=== PATIENT | male | born 1980 | race Caucasian/White ===

== ENCOUNTER 2017-04-26 01:15 | Observation (INO) | payer SELFPAY ==
[2017-04-26] VITALS (11 sets, daily range): BP systolic 95–126; BP diastolic 56–81; PULSE 65–115; RESP 14–20; TEMP 97.3–99.8; O2SAT 96–100
[~2017-04-26] VITALS: Ht 167.6 cm; Wt 69.1 kg
[~2017-04-26 01:15] MED LIST: BACL10TA PO; CYCL-36 PO; GABA100C4 PO; NAPR250T57 PO; TRAM100T19 PO
[2017-04-26] MEDS ORDERED: HYDR-3583 PO (01:28)
[2017-04-26] MEDS ORDERED: VARE.5 PO (01:28)
[2017-04-26] MEDS ORDERED: TRAM50TA PO (01:28)
[2017-04-26] MEDS ORDERED: SODIUM CHLOR 0.9% 1000 ML INJ 1,000 ML IV SCH ×2 (01:41→08:00)
[2017-04-26] MEDS ORDERED: ONDANSETRON HCL 4 MG/2 ML VIAL IVP ONE (01:45)
[2017-04-26] MEDS ORDERED: SODIUM CHLORIDE 0.9% FLUSH 10 ML FLUSH IV FLUSH PRN ×2 (01:45→07:30)
[2017-04-26] MEDS ORDERED: MORPHINE SULFATE 8 MG/ML INJ IV PUSH ONE ×2 (01:45→07:00)
[2017-04-26] MEDS ORDERED: IOHEXOL 350 MG/ML 10 ML VIAL (for RAD DIAG) IVCONTRAST ONE (02:01)
[2017-04-26 02:11] LABS: BASOPHIL % 0.2 % (0.0-2.0); EOSINOPHIL # 0.2 TH/MM3 (0-0.4); EOSINOPHIL % 1.7 % (0.0-4.0); HEMATOCRIT 41.4 % (39.0-51.0); HEMOGLOBIN 13.9 GM/DL (13.0-17.0); LYMPH % 27.1 % (9.0-44.0); MEAN CELL VOLUME 88.2 FL (80.0-100.0); MEAN CORPUSCULAR HEMOGLOBIN 29.5 PG (27.0-34.0); MEAN CORPUSCULAR HGB CONC 33.5 % (32.0-36.0); MEAN PLATELET VOLUME 7.7 FL (7.0-11.0); MONO % 7.9 % (0.0-8.0); MONOCYTE # 0.9 TH/MM3 (0-0.9); NEUT % 63.1 % (16.0-70.0); PLATELET COUNT 316 TH/MM3 (150-450); RED CELL DISTRIBUTION WIDTH 12.8 % (11.6-17.2); WHITE BLOOD COUNT 11.1 TH/MM3 (4.0-11.0)
[2017-04-26 02:12] LABS: BILIRUBIN, URINE NEG (NEG); BLOOD, URINE NEG (NEG); GLUCOSE,URINE NEG (NEG); KETONE, URINE NEG (NEG); MUCUS URINE FEW /lpf (OCC); NITRITE,URINE NEG (NEG); PH, URINE 5.5 (5.0-8.5); SQUAMOUS EPITHELIAL CELL URINE <1 /hpf (0-5); URINE COLOR YELLOW (YELLW/STRAW); URINE LEUKOCYTE ESTERASE NEG (NEG)
[2017-04-26 02:30] LABS: ALBUMIN 3.9 GM/DL (3.4-5.0); ALT (GPT) 52 U/L (12-78); AST (GOT) 25 U/L (15-37); BICARBONATE 28.1 MEQ/L (21.0-32.0); BLOOD UREA NITROGEN 16 MG/DL (7-18); CALCIUM 8.8 MG/DL (8.5-10.1); CHLORIDE 108 MEQ/L (98-107); CREATININE 0.95 MG/DL (0.60-1.30); GLOMERULAR FILTRATION RATE 89 ML/MIN (>89); GLUCOSE,RANDOM 113 MG/DL (74-106); LIPASE 259 U/L (73-393); SODIUM (NA) 143 MEQ/L (136-145)
--- NOTE | 2017-04-26 02:30 | RADRPT ---
EXAM DATE/TIME: 04/26/2017 02:01 [place] COMPARISON: No previous studies available for comparison. INDICATIONS : Abdominal pain with vomiting; rule out appendicitis. IV CONTRAST: 96 cc Omnipaque 350 (iohexol) IV ORAL CONTRAST: No oral contrast ingested. RADIATION DOSE: 6.78 CTDIvol (mGy) MEDICAL HISTORY : None SURGICAL HISTORY : None. ENCOUNTER: Initial ACUITY: 1 day PAIN SCALE: 10/10 LOCATION: abdomen TECHNIQUE: Volumetric scanning of the abdomen and pelvis was performed. Using automated exposure control and ad justment of the mA and/or kV according to patient size, radiation dose was kept as low as reasonably achievable to obtain optimal diagnostic quality images. DICOM format image data is available electro nically for review and comparison. FINDINGS: LOWER LUNGS: The visualized lower lungs are clear. LIVER: Homogeneous density without lesion. There is no dilation of the biliary tree. No calcified gallston es. SPLEEN: Normal size without lesion. PANCREAS: Within normal limits. KIDNEYS: Normal in size and shape. There is no mass, stone or hydronephrosis. ADRENAL GLANDS: Within normal limits. VASCULAR: There is no aortic aneurysm. BOWEL/MESENTERY: Distended appendix at approximate 13 mm. There is mild wall thickening and mild periappendiceal fat s tranding. No abscess, perforation or obstruction. CT appearance of the rest of the gastrointestinal t ract within normal limits. No free fluid. ABDOMINAL WALL: Within normal limits. RETROPERITONEUM: There is no lymphadenopathy. BLADDER: No wall thickening or mass. REPRODUCTIVE: Within normal limits. INGUINAL: There is no lymphadenopathy or hernia. MUSCULOSKELETAL: Within normal limits for patient age. CONCLUSION: CT findings of early/mild uncomplicated appendicitis in the proper clinical setting. The rest of the CT is normal. Juan Barker MD on April 26, 2017 at 2:27 Board Certified Radiologist. This report was verified electronically.
[2017-04-26 02:32] LABS: ALKALINE PHOSPHATASE 61 U/L (45-117); TOTAL BILIRUBIN ADULT 0.4 MG/DL (0.2-1.0); TOTAL PROTEIN 7.2 GM/DL (6.4-8.2)
[2017-04-26] MEDS ORDERED: PIPERACIL-TAZO 4.5 GM PREMIX 100 ML IV ONE (02:45)
--- NOTE | 2017-04-26 03:14 | PD ---
HPI Chief Complaint: Abdominal Pain Time Seen by Provider: 01:41 Travel History International Travel<30 days: No Contact w/Intl Traveler<30days: No Traveled to known affect area: No History of Present Illness HPI 37-year-old male who was abdominal pain on the right side. Onset gradual. Appetite decreased throughout the last 24 hours. The patient has nausea. He denies diarrhea. Pain is not constant. He denies fever. Pain is worse with palpation. PFSH Past Medical History Medical other: Yes (CHRONIC LOWER BACK PAIN ) Tetanus Vaccination: > 5 Years Influenza Vaccination: No Social History Alcohol Use: Yes (1-2 DRINKS PER WEEK) Tobacco Use: Yes (<1 PPD) Substance Use: No Allergies-Medications (Allergen,Severity, Reaction): Coded Allergies: No Known Allergies (Verified Allergy, Unknown, 04/26/17) Reported Meds & Prescriptions Reported Meds & Active Scripts Active Hydrocodone-Acetamin 5-325 mg (Hydrocodone/Acetaminophen) 5 Mg-325 Mg Tablet 1- 2 Tab PO Q4H PRN Reported Chantix (Varenicline) 0.5 Mg Tab 0.5 Mg PO DAILY Days 1-3 Tramadol (Tramadol HCl) 50 Mg Tab 50 Mg PO Q4H PRN Lioresal (Baclofen) 10 Mg Tab Unknown Dose PO TID Review of Systems Except as stated in HPI: all other systems reviewed are Neg General / Constitutional: No: Fever Gastrointestinal: Positive: Abdominal Pain Physical Exam Narrative GENERAL: 37-year-old male well-nourished well-developed mild to moderate distress secondary to pain SKIN: Focused skin assessment warm/dry. HEAD: Atraumatic. Normocephalic. EYES: Pupils equal and round. No scleral icterus. No injection or drainage. ENT: No nasal bleeding or discharge. Mucous membranes pink and moist. NECK: Trachea midline. No JVD. CARDIOVASCULAR: Regular rate and rhythm. No murmur appreciated. RESPIRATORY: No accessory muscle use. Clear to auscultation. Breath sounds equal bilaterally. GASTROINTESTINAL: There is tenderness at McBurney's point. The abdomen is soft. There is no peritonitis. MUSCULOSKELETAL: No obvious deformities. No clubbing. No cyanosis. No edema. NEUROLOGICAL: Awake and alert. No obvious cranial nerve deficits. Motor grossly within normal limits. Normal speech. PSYCHIATRIC: Appropriate mood and affect; insight and judgment normal. Data Data Last Documented VS Vital Signs Date Time Temp Pulse Resp B/P (MAP) Pulse Ox O2 Delivery O2 Flow Rate FiO2 04/26/17 07:05 93 18 113/75 (88) 99 Room Air 04/26/17 06:00 2.00 04/26/17 01:19 98.6 Vital signs reviewed Orders Orders Complete Blood Count With Diff (04/26/17 01:41) Comprehensive Metabolic Panel (04/26/17 01:41) Lipase (04/26/17 01:41) Lactic Acid (04/26/17 01:41) Urinalysis - C+S If Indicated (04/26/17 01:41) Ct Abd/Pel W Iv Contrast(Rout) (04/26/17 01:41) Iv Access Insert/Monitor (04/26/17 01:41) Ecg Monitoring (04/26/17 01:41) Oximetry (04/26/17 01:41) Ondansetron Inj (Zofran Inj) (04/26/17 01:45) Sodium Chlor 0.9% 1000 Ml Inj (Ns 1000 M (04/26/17 01:41) Sodium Chloride 0.9% Flush (Ns Flush) (04/26/17 01:45) Morphine Inj (Morphine Inj) (04/26/17 01:45) Piperacil-Tazo 4.5 Gm Premix (Zosyn 4.5 (04/26/17 02:45) Ketamine Inj (Ketalar Inj) (04/26/17 03:15) Sodium Chlor 0.9% 1000 Ml Inj (Ns 1000 M (04/26/17 03:15) Midazolam Inj (Versed Inj) (04/26/17 03:45) Ondansetron Inj (Zofran Inj) (04/26/17 06:45) Morphine Inj (Morphine Inj) (04/26/17 07:00) Promethazine Inj (Phenergan Inj) (04/26/17 07:00) Admit Order (Ed Use Only) (04/26/17 ) Labs Laboratory Tests Test 04/26/17 01:50 04/26/17 01:56 White Blood Count 11.1 TH/MM3 Red Blood Count 4.70 MIL/MM3 Hemoglobin 13.9 GM/DL Hematocrit 41.4 % Mean Corpuscular Volume 88.2 FL Mean Corpuscular Hemoglobin 29.5 PG Mean Corpuscular Hemoglobin Concent 33.5 % Red Cell Distribution Width 12.8 % Platelet Count 316 TH/MM3 Mean Platelet Volume 7.7 FL Neutrophils (%) (Auto) 63.1 % Lymphocytes (%) (Auto) 27.1 % Monocytes (%) (Auto) 7.9 % Eosinophils (%) (Auto) 1.7 % Basophils (%) (Auto) 0.2 % Neutrophils # (Auto) 7.0 TH/MM3 Lymphocytes # (Auto) 3.0 TH/MM3 Monocytes # (Auto) 0.9 TH/MM3 Eosinophils # (Auto) 0.2 TH/MM3 Basophils # (Auto) 0.0 TH/MM3 CBC Comment DIFF FINAL Differential Comment Urine Color YELLOW Urine Turbidity CLEAR Urine pH 5.5 Urine Specific [place] 1.025 Urine Protein NEG mg/dL Urine Glucose (UA) NEG mg/dL Urine Ketones NEG mg/dL Urine Occult Blood NEG Urine Nitrite NEG Urine Bilirubin NEG Urine Urobilinogen LESS THAN 2.0 MG/DL Urine Leukocyte Esterase NEG Urine RBC LESS THAN 1 /hpf Urine WBC LESS THAN 1 /hpf Urine Squamous Epithelial Cells <1 /hpf Urine Mucus FEW /lpf Microscopic Urinalysis Comment CULT NOT INDICATED Blood Urea Nitrogen 16 MG/DL Creatinine 0.95 MG/DL Random Glucose 113 MG/DL Total Protein 7.2 GM/DL Albumin 3.9 GM/DL Calcium Level 8.8 MG/DL Alkaline Phosphatase 61 U/L Aspartate Amino Transf (AST/SGOT) 25 U/L Alanine Aminotransferase (ALT/SGPT) 52 U/L Total Bilirubin 0.4 MG/DL Sodium Level 143 MEQ/L Potassium Level 3.8 MEQ/L Chloride Level 108 MEQ/L Carbon Dioxide Level 28.1 MEQ/L Anion Gap 7 MEQ/L Estimat Glomerular Filtration Rate 89 ML/MIN Lipase 259 U/L Lactic Acid Level 2.0 mmol/L MDM Medical Decision Making Medical Screen Exam Complete: Yes Emergency Medical Condition: Yes Medical Record Reviewed: Yes Differential Diagnosis Constipation, Gastritis, Acute Cholecystitis, Biliary Colic, Pancreatitis, JUSTICE , Hepatitis, Bowel Obstruction, Cystitis, Mesenteric Ischemia, AAA, Appendicitis , Renal Stone/Hydronephrosis, GERD, perforated viscous Narrative Course CBC & BMP Diagram 04/26/17 01:50 Total Protein 7.2, Albumin 3.9, Calcium Level 8.8, Alkaline Phosphatase 61, Aspartate Amino Transf (AST/SGOT) 25, Alanine Aminotransferase (ALT/SGPT) 52, Total Bilirubin 0.4 The lactic acid is normal. Urinalysis shows no UTI CT of the abdomen and pelvis reveals early uncomplicated appendicitis Patient is abdomen is soft. Zosyn started. Maintenance fluids started. Patient reports persistent pain at time of reassessment, 3:05 AM, and 10 mg of IV ketamine ordered as the patient takes opioids and a regular basis and I doubt additional morphine will help. There is no sign of perforated abscess and with a soft belly the patient is not peritoneal. Dr Ponce called at 3:03AM w second call placed at 6:00AM. Dr Ponce called at 6:20AM and 6:45AM. Pain controlled by IV ketamine from approx 4:00AM to 6:30AM. Mild TTP at 6:50AM with complaints of nausea and increasing pain. Zofran and Morphine ordered. Diagnosis Primary Impression: Appendicitis Qualified Codes: K35.80 - Unspecified acute appendicitis Admitting Information Admitting Physician Requests: Observation Scripts Hydrocodone/Acetaminophen (Hydrocodone-Acetamin 5-325 mg) 5 Mg-325 Mg Tablet 1-2 TAB PO Q4H Y for PAIN, #20 TAB Prov: Napoleon Hadley MD 04/26/17 Titus Bee MD Apr 26, 2017 03:14
[2017-04-26] MEDS ORDERED: SODIUM CHLOR 0.9% 1000 ML INJ 1,000 ML IV ONE (03:15)
[2017-04-26] MEDS ORDERED: KETAMINE HCL 500 MG/5 ML VIAL IV PUSH ONE (03:15)
[2017-04-26] MEDS ORDERED: MIDAZOLAM HCL 2 MG/2 ML VIAL IV PUSH ONE (03:45)
[2017-04-26] MEDS ORDERED: ONDANSETRON HCL 4 MG/2 ML VIAL IV PUSH ONE (06:45)
[2017-04-26] MEDS ORDERED: PROMETHAZINE INJ 25 MG/ML VIAL IM ONE (07:00)
[2017-04-26] MEDS ORDERED: ONDANSETRON HCL 4 MG/2 ML VIAL IV PUSH PRN (07:30)
[2017-04-26] MEDS ORDERED: NICOTINE 7 MG/24 HR PATCH T-DERMAL ONE (07:30)
[2017-04-26] MEDS ORDERED: MORPHINE SULFATE 2 MG/ML INJ IV PUSH PRN (07:45)
[2017-04-26] MEDS ORDERED: SODIUM CHLORIDE 0.9% FLUSH 10 ML FLUSH IV FLUSH SCH (09:00)
[2017-04-26] MEDS ORDERED: PIPERACIL-TAZO 3.375 GM PREMIX 50 ML IV SCH (09:00)
[2017-04-26] MEDS ORDERED: REMOVE OLD PATCH T-DERMAL SCH (09:15)
[2017-04-26] MEDS ORDERED: NICOTINE 7 MG/24 HR PATCH T-DERMAL SCH (09:15)
--- NOTE | 2017-04-26 09:17 | HHI.HP ---
HPI Service General Surgery Primary Care Physician Juan Phillips, DO Admission Diagnosis acute appendicitis Chief Complaint: Abdominal pain History of Present Illness The patient is a 37 yo M who developed acute onset of periumbilical abdominal pain at 930pm last night which worsened and a few hrs later he presented to the ED. He has had nausea and multiple episodes of emesis. He is noted to have a WBC of 11,[address] a/p concerning for appendicitis. Review of Systems Constitutional: DENIES: Fever, Chills Eyes: DENIES: Eye inflammation, Eye pain Cardiovascular: DENIES: Chest pain, Palpitations Gastrointestinal: COMPLAINS OF: Abdominal pain, Nausea, Vomiting Musculoskeletal: COMPLAINS OF: Back pain Integumentary: DENIES: Pruritus, Rash Neurologic: DENIES: Seizures, Speech Problems Past Family Social History Past Medical History Chronic back pain Past Surgical History Knee surgery Reported Medications Reported Meds & Active Scripts Active Reported Chantix (Varenicline) 0.5 Mg Tab 0.5 Mg PO DAILY Days 1-3 Tramadol (Tramadol HCl) 50 Mg Tab 50 Mg PO Q4H PRN Hydrocodone-Acetaminophen 10-325 mg Tab 1 Tab PO Q4H PRN Lioresal (Baclofen) 10 Mg Tab Unknown Dose PO TID Allergies: Coded Allergies: No Known Allergies (Verified Allergy, Unknown, 04/26/17) Active Ordered Medications Current Medications Medications (Trade) Dose Ordered Sig/Mandy Route Start Time Stop Time Status Last Admin Sodium Chloride 1,000 ml @ 125 mls/hr Q8H IV 04/26/17 08:00 04/26/17 08:24 (NS Flush) 2 ml UNSCH PRN IV FLUSH 04/26/17 07:30 (NS Flush) 2 ml BID IV FLUSH 04/26/17 09:00 Piperacillin Sod/ Tazobactam Sod 50 ml @ 100 mls/hr Q6H IV 04/26/17 09:00 (Morphine Inj) 4 mg Q2H PRN IV PUSH 04/26/17 07:45 (Zofran Inj) 4 mg Q6H PRN IV PUSH 04/26/17 07:30 Family History Noncontributory Social History On chantix attempting to quit smoking but still smokes cigarettes. Occ ETOH use. Physical Exam Vital Signs Vital Signs Date Time Temp Pulse Resp B/P (MAP) Pulse Ox O2 Delivery O2 Flow Rate FiO2 04/26/17 09:06 04/26/17 07:05 93 18 113/75 (88) 99 Room Air 04/26/17 06:00 65 16 122/77 (92) 100 Nasal Cannula 2.00 04/26/17 05:00 65 16 120/75 (90) 100 Nasal Cannula 2.00 04/26/17 04:01 88 14 126/77 (93) 100 Nasal Cannula 2.00 04/26/17 03:31 115 16 126/76 (93) 100 Nasal Cannula 2.00 04/26/17 03:00 100 16 107/65 (79) 100 Room Air 04/26/17 01:19 98.6 69 20 111/81 (91) 100 Room Air Physical Exam GENERAL: Awake and alert. No acute distress. Cooperative. HEAD: Normocephalic. Atraumatic. EYES: Pupils equal round and reactive to light bilaterally. No scleral icterus. ENT: Moist oral mucosa. NECK: Trachea midline. CHEST: Lungs clear to auscultation bilaterally with no wheezing or rhonchi. No respiratory distress. CARDIOVASCULAR: Regular rate and rhythm. ABDOMEN: MIld LLQ ttp. Severe ttp and + rebound in RLQ. EXTREMITIES: No cyanosis or edema. SKIN: Warm, dry, nonjaundiced. Laboratory Laboratory Tests Test 04/26/17 01:50 04/26/17 01:56 White Blood Count 11.1 Red Blood Count 4.70 Hemoglobin 13.9 Hematocrit 41.4 Mean Corpuscular Volume 88.2 Mean Corpuscular Hemoglobin 29.5 Mean Corpuscular Hemoglobin Concent 33.5 Red Cell Distribution Width 12.8 Platelet Count 316 Mean Platelet Volume 7.7 Neutrophils (%) (Auto) 63.1 Lymphocytes (%) (Auto) 27.1 Monocytes (%) (Auto) 7.9 Eosinophils (%) (Auto) 1.7 Basophils (%) (Auto) 0.2 Neutrophils # (Auto) 7.0 Lymphocytes # (Auto) 3.0 Monocytes # (Auto) 0.9 Eosinophils # (Auto) 0.2 Basophils # (Auto) 0.0 CBC Comment DIFF FINAL Differential Comment Urine Color YELLOW Urine Turbidity CLEAR Urine pH 5.5 Urine Specific [place] 1.025 Urine Protein NEG Urine Glucose (UA) NEG Urine Ketones NEG Urine Occult Blood NEG Urine Nitrite NEG Urine Bilirubin NEG Urine Urobilinogen LESS THAN 2.0 Urine Leukocyte Esterase NEG Urine RBC LESS THAN 1 Urine WBC LESS THAN 1 Urine Squamous Epithelial Cells <1 Urine Mucus FEW Microscopic Urinalysis Comment CULT NOT INDICATED Blood Urea Nitrogen 16 Creatinine 0.95 Random Glucose 113 Total Protein 7.2 Albumin 3.9 Calcium Level 8.8 Alkaline Phosphatase 61 Aspartate Amino Transf (AST/SGOT) 25 Alanine Aminotransferase (ALT/SGPT) 52 Total Bilirubin 0.4 Sodium Level 143 Potassium Level 3.8 Chloride Level 108 Carbon Dioxide Level 28.1 Anion Gap 7 Estimat Glomerular Filtration Rate 89 Lipase 259 Lactic Acid Level 2.0 Result Diagram: 04/26/1714904/26/17149 Imaging Last Impressions Abdomen/Pelvis CT 04/26/17 0141 Signed Impressions: Service Date/Time: Wednesday, April 26, 2017 02:01 - CONCLUSION: CT findings of early/mild uncomplicated appendicitis in the proper clinical setting. The rest of the CT is normal. Juan Barker MD Caprini VTE Risk Assessment Caprini VTE Risk Assessment: No/Low Risk (score <= 1) Caprini Risk Assessment Model Point Value = 1 Point Value = 2 Point Value = 3 Point Value = 5 Age 41-60 Minor surgery BMI > 25 kg/m2 Swollen legs Varicose veins or History of unexplained or recurrent spontaneous Oral contraceptives or hormone replacement Sepsis (< 1 month) Serious lung disease, including pneumonia (< 1 month) Abnormal pulmonary function Acute myocardial infarction Congestive heart failure (< 1 month) History of inflammatory bowel disease Medical patient at bed rest Age 61-74 Arthroscopic surgery Major open surgery (> 45 min) Laparoscopic surgery (> 45 min) Malignancy Confined to bed (> 72 hours) Immobilizing plaster cast Central venous access Age >= 75 History of VTE Family history of VTE Factor V Leiden Prothrombin [id number] Lupus anticoagulant Anticardiolipin antibodies Elevated serum homocysteine Heparin-induced thrombocytopenia Other congenital or acquired thrombophilia Stroke (< 1 month) Elective arthroplasty Hip, pelvis, or leg fracture Acute spinal cord injury (< 1 month) Prophylaxis Regimen Total Risk Factor Score Risk Level Prophylaxis Regimen 0-1 Low Early ambulation 2 Moderate Order ONE of the following: *Sequential Compression Device (SCD) *Heparin 5000 units SQ BID 3-4 Higher Order ONE of the following medications: *Heparin 5000 units SQ TID *Enoxaparin/Lovenox 40 mg SQ daily (WT < 150 kg, CrCl > 30 mL/min) *Enoxaparin/Lovenox 30 mg SQ daily (WT < 150 kg, CrCl > 10-29 mL/min) *Enoxaparin/Lovenox 30 mg SQ BID (WT < 150 kg, CrCl > 30 mL/min) AND/OR *Sequential Compression Device (SCD) 5 or more Highest Order ONE of the following medications: *Heparin 5000 units SQ TID (Preferred with Epidurals) *Enoxaparin/Lovenox 40 mg SQ daily (WT < 150 kg, CrCl > 30 mL/min) *Enoxaparin/Lovenox 30 mg SQ daily (WT < 150 kg, CrCl > 10-29 mL/min) *Enoxaparin/Lovenox 30 mg SQ BID (WT < 150 kg, CrCl > 30 mL/min) AND *Sequential Compression Device (SCD) Assessment and Plan Assessment and Plan 37-year-old male who has an evaluation consistent with acute appendicitis. I recommend to proceed with laparoscopic possible open appendectomy. I discussed the procedure including details and risks with the patient and his and he desires to proceed. We will give low-dose nicotine patch at his request. Continue IV antibiotics. Napoleon Hadley MD Apr 26, 2017 09:17
[2017-04-26] MEDS ORDERED: PROPOFOL 200 MG/20 ML AMP IV ONE (12:00)
[2017-04-26] MEDS ORDERED: LACTATED RINGER'S 1000 ML INJ 1,000 ML IV ONE (12:00)
[2017-04-26] MEDS ORDERED: ROCURONIUM INJ 50 MG/5 ML SYRINGE IV PUSH ONE (12:00)
[2017-04-26] MEDS ORDERED: GLYCOPYRROLATE 1 MG/5 ML SYRINGE IV PUSH ONE (12:00)
[2017-04-26] MEDS ORDERED: LIDOCAINE HCL 1% PF 5 ML SYRINGE OTHER ONE (12:00)
[2017-04-26] MEDS ORDERED: ONDANSETRON HCL 4 MG/2 ML VIAL IV ONE (12:00)
[2017-04-26] MEDS ORDERED: MIDAZOLAM HCL 2 MG/2 ML VIAL IV ONE (12:00)
[2017-04-26] MEDS ORDERED: SUCCINYLCHOLINE CHLORIDE 100 MG/5 ML SYRINGE IV PUSH ONE (12:00)
[2017-04-26] MEDS ORDERED: DEXAMETHASONE SOD PHOS 4 MG/ML VIAL IV ONE (12:00)
[2017-04-26] MEDS ORDERED: NEOSTIGMINE 5 MG/5 ML SYRINGE IV PUSH ONE (12:00)
[2017-04-26] MEDS ORDERED: ACETAMINOPHEN 1000 MG/100 ML 100 ML IV ONE (13:43)
[2017-04-26] MEDS ORDERED: BUPIVACAINE/EPINEPHRINE 0.25% PF 30 ML VIAL ONE (13:47)
[2017-04-26] MEDS ORDERED: POVIDONE IODINE 5% (ANTISEPSIS KIT) 4 APPLICATIONS EACH NARE PRN (14:00)
[2017-04-26] MEDS ORDERED: SODIUM CHLORID 0.9% 500 ML IV PRN (14:00)
[2017-04-26] MEDS ORDERED: METOPROLOL TARTRATE 25 MG TAB PO PRN (14:00)
[2017-04-26] MEDS ORDERED: LACTATED RINGER'S 1000 ML IV PRN (14:00)
[2017-04-26] MEDS ORDERED: CHLORHEXIDINE GLUCONATE 2 % 1 PACK (2 CLOTHS) TOPICAL PRN (14:00)
--- NOTE | 2017-04-26 15:21 | PD.OP ---
cc: Napoleon Hadley MD Operative Report Date of Surgery: Apr 26, 2017 Preoperative Diagnosis: (1) Appendicitis Postoperative Diagnosis: (1) Appendicitis Procedure: Laparoscopic appendectomy Anesthesia: KERRIEA Surgeon: Napoleon Hadley Loan Collector(s): Marcial Operation and Findings: EBL: 5 cc Complications: None apparent Operative findings: Distended dilated appendix with no evidence of perforation. Procedure in detail: The patient was taken to the operating room placed in the supine position with left arm tucked. General endotracheal anesthesia was induced and the abdomen was prepped and draped in usual sterile fashion. Surgical timeout was performed to verify correct patient procedure and site. Perioperative antibiotics were administered as necessary. Local anesthetic was injected in the skin and subcutaneous tissue in the left lower abdomen and a 5 mm incision made. Using the 5 mm Optiview trocar with laparoscope the abdomen was directly entered. The abdomen Was then insufflated to 15 mmHg with CO2 gas which the patient tolerated well. The patient was then placed in Trendelenburg position and turned slightly to the left. A 12 mm port was placed under laparoscopic visualization in the suprapubic area and a 5 mm port above the umbilicus. Attention was turned to the right lower quadrant and the appendix was identified and noted to be inflamed distended and dilated without evidence of perforation. The mesoappendix was taken down with the Harmonic scalpel. Two #1 PDS Endoloops were placed at the base the appendix and the appendix transected with Harmonic scalpel. It was then removed using an Endo Catch bag. The appendiceal stump was intact with no leakage. There was no purulent fluid identified in the abdomen was allowed to desufflate. The fascia at the 12 mm port site was closed with a single [id number] 0 Vicryl suture. Skin closed with subcuticular Monocryl as well as Dermabond. The patient tolerated the procedure well was extubated and taken to PACU in stable condition. Napoleon Hadley MD Apr 26, 2017 15:21
[2017-04-26] MEDS ORDERED: HYDR-3516 PO (15:24)
[2017-04-26] MEDS ORDERED: ACETAMINOPHEN/HYDROcodone 325 MG/5 MG TAB PO PRN ×2 (15:30)
[2017-04-26] MEDS ORDERED: *RESP: ALBUTEROL 2.5 MG/3 ML NEB (PRN) PERIprocedural Use ONLY NEB ONE (15:50)
== END 2017-04-26 19:03 | disposition home or self-care (01) ==
LOC: NEPE 01:15 → NEDA 07:24 → NEPGCP 09:02
PROVIDERS: ADMIT Surgery; ATTEND Surgery
DX: K35.80 Unspecified acute appendicitis (principal); F17.210 Nicotine dependence, cigarettes, uncomplicated
CPT/HCPCS: 00840; 44970; 74177; 80053; 81001; 83605; 83690; 85025; 88304; 94640; 96361; 96365; 96372; 96375; 96376; 99285; G0378; J0131; J0330; J1100; J2250; J2270; J2405; J2543; J2550; J2710; J3010; J7030; J7120; J7613; Q9967